=== PATIENT | female | born 1930 | race Caucasian/White ===

== ENCOUNTER → 2016-07-02 | Outpatient (CLI) | payer OTHER | LOC: MMPC 10:00 | PROVIDERS: ATTEND Podiatrist Foot & Ankle Surgery | DX: L60.3 Nail dystrophy (principal); M25.572 Pain in left ankle and joints of left foot | CPT/HCPCS: 11755; G0463 ==

== ENCOUNTER → 2016-07-08 | Outpatient (CLI) | payer OTHER ==
--- NOTE | 2016-07-09 08:38 | DI ---
History: Left foot trauma 4 view study. Prior examination: None. Findings: There is some degenerative changes surfaces at the first IP articulation with some small os teophytes. Phalanges are otherwise unremarkable. Minimal hallux valgus angulation. Mild degenerative changes of the midfoot. Hindfoot ossicles appear unremarkable. Impression: Minimal degenerative changes as mentioned above. No fracture observed
== END ==
LOC: RAD 17:37
PROVIDERS: ATTEND Physician Assistant
DX: M79.672 Pain in left foot (principal); M19.072 Primary osteoarthritis, left ankle and foot; W01.0XXA Fall on same level from slipping, tripping and stumbling without subsequent striking against object, initial encounter
CPT/HCPCS: 73630; 99212; G0463

== ENCOUNTER → 2016-07-31 | Outpatient (CLI) | payer OTHER | LOC: MMPC 10:00 | PROVIDERS: ATTEND Podiatrist Foot & Ankle Surgery | DX: M25.572 Pain in left ankle and joints of left foot (principal); L60.3 Nail dystrophy ==

== ENCOUNTER 2016-09-01 14:06 | Inpatient (IN) | payer OTHER ==
[2016-09-01] MEDS ORDERED: NORMAL SALINE 10 ML SYRINGE FLUSH IVP PRN (15:00)
[2016-09-01] MEDS ORDERED: ALBUTEROL SULFATE 8.5 GM HFA INHALER INH PRN (15:04)
--- NOTE | 2016-09-01 15:12 | PDOC ---
History and Physical - History of Present Illness Date and Time of Service: 09/01/2016 3:11 PM Chief Complaint: Unsteadiness, trouble finding words since last Thursday History of Present Illness: This is a 86 years old female with medical history significant for history of hypertension, hypothyroidism, hyperlipidemia and GERD who was referred to the hospital from Dr. Cai office as she's been having trouble finding words and unsteadiness that started last Thursday. The patient said that she was at the grocery line last Thursday and all of a sudden she didn't know what to do,had trouble paying for her groceries and then the credit collections clerk helped her with that but she was able to drive back home the whole thing lasted 5-10 minutes and then things improved. But she noticed after that that she is having trouble with walking with slight unsteadiness and difficulty in finding words. She doesn't think that there is weakness on one side more than the other, however Dr. Cai noticed some difference in the coordination of the left hand. She did say that she's noticed that her handwriting and she is right-handed is different since the episode. No change in her vision. In the clinic it was noted that her blood pressure was elevated and she was referred for admission. She denied chest pain, shortness of breath, and no palpitations. Past Medical History Medical History: 1. History of hypertension. 2. History of atrial fibrillation status post ablation 2008. 3. Hyperlipidemia. 4. Hypothyroidism. 5. GERD. 6. Asthma Surgical History: 1. Hysterectomy. 2. Cholecystectomy Family History: Reviewed an Not Pertinent Tobacco Use: Never Smoker Substance Use Type: None Alcohol Use: Rarely Medication / Allergies Home Medications: Home Medications Medication Instructions Recorded Confirmed Type Albuterol HFA Inhaler [Proair HFA 2 puff INH Q4H PRN #3 inhaler 03/22/14 Clinic Inhaler] Budesonide/Formoterol Fumarate 2 puff INH BID #1 inhaler 03/22/14 09/01/16 Clinic [SYMBICORT] Multivitamin [Daily Vitamin] 1 each PO DAILY tab 03/22/14 09/01/16 History Dexlansoprazole [Dexilant] 60 mg PO DAILY #90 cap 09/04/15 09/01/16 Clinic Losartan Potassium 1 tab PO DAILY #90 tab 09/04/15 09/01/16 Clinic Hydrochlorothiazide 0.5 tab PO DAILY #90 tab 12/26/15 09/01/16 Clinic Citalopram Hydrobromide 1 tab PO DAILY #90 tab 02/20/16 09/01/16 Clinic [Citalopram Hbr] Potassium Chloride [Klor-Con M20] 20 meq PO BID #60 tab 02/22/16 09/01/16 Clinic Ezetimibe [Zetia] 1 tab ORAL QD #90 tab 06/16/16 09/01/16 Clinic Levothyroxine Sodium [Synthroid] 1 tab ORAL QD #90 tab 06/16/16 09/01/16 Clinic Allergies/Adverse Reactions: Allergies Allergy/AdvReac Type Severity Reaction Status Date / Time aloe vera Allergy Mild RASH Unverified 07/08/16 17:25 atenolol AdvReac Intermediate NOT Unverified 07/08/16 17:25 APPLICABLE brimonidine tartrate AdvReac Intermediate DIZZINESS Unverified 07/08/16 17:25 [From Simbrinza] brinzolamide [From Simbrinza] AdvReac Intermediate DIZZINESS Unverified 17:25 codeine AdvReac Intermediate VOMITING Unverified 07/08/16 17:25 sotalol AdvReac Intermediate NOT Unverified 07/08/16 17:25 APPLICABLE Kbwhpyq-Fwl-Wzy Reductase AdvReac Intermediate NOT Unverified 07/08/16 17:25 Inhibitor APPLICABLE Review of Systems - Review of Systems All Systems: Reviewed & No Additional Complaints Except as Stated Exam - Vitals Vital Signs: Vital Signs Height 5 ft 4 in - General General Appearance: POSITIVE: No Acute Distress, Cooperative, Obese - Head Head Exam: POSITIVE: Normal Inspection, Atraumatic - Eye Eye Exam: POSITIVE: Normal Appearance - ENT ENT Exam: POSITIVE: Normal Exam - Neck Neck Exam: POSITIVE: Normal Inspection - Respiratory Respiratory Exam: POSITIVE: Clear to Auscultation - Bilaterally - Cardiovascular Cardiovascular Exam: POSITIVE: RRR - GI/Abdominal GI/Abdominal Exam: POSITIVE: Normal Bowel Sounds, Non Tender, Non Distended, Soft - Rectal Rectal Exam: POSITIVE: Deferred - External Exam: POSITIVE: Deferred - Extremities Extremities Exam: POSITIVE: Normal Inspection, Pedal Edema - Back Back Exam: POSITIVE: Normal Inspection - Neurological Neurological Exam: POSITIVE: Alert, Oriented x 3, CN II-XII Intact, No Facial Droop, Speech Intact / Clear, No Fasciculations Additional Neurological Exam Details: Strengths seem to be equal except there is some coordination problems noted on the left hand. The left hand seems to be more clumsy and there is past pointing. Her gait seemed to be hesitant and somewhat wide-based. - Psychiatric Psychiatric Exam: POSITIVE: Normal Affect - Integumentary Integumentary Exam: POSITIVE: Normal Color Results - Labs CBC and BMP: 09/01/16 15:26 Assessment and Plan - Patient Problems (1) Unsteadiness Current Visit: Yes Status: Acute Comment: There is some unsteadiness, and coordination problem on the left hand so we'll do a CT of the head to rule out a CVA if negative then we'll do an MRI. If it is positive then we'll do an ECHO and ultrasound of the neck. Because of her history of for previous A. fib will puts her on monitor. Once we have the CT will put her on aspirin and order PT and OT (2) Hypertension Current Visit: Yes Status: Acute Comment: Blood pressure is elevated we'll put her back on her usual medication. Watch her blood pressure. We'll see if she had a stroke or not, then we'll adjust the blood pressure medication depending on the findings and blood pressure numbers (3) Hypothyroidism Current Visit: Yes Status: Acute Comment: Same medications (4) Hypercholesterolemia Current Visit: Yes Status: Acute Comment: Same medications
[2016-09-01 15:29] LABS: BASOPHILS # (AUTO) 0.04 10*3/UL; BASOPHILS % (AUTO) 0.7 % (0-1); EOSINOPHILS # (AUTO) 0.21 10*3/UL; EOSINOPHILS % (AUTO) 3.5 % (0-8); HEMATOCRIT 42.7 % (37.0-47.0); HEMOGLOBIN 13.8 g/dL (12.0-16.0); MEAN CORPUSCULAR HEMOGLOBIN 29.7 PG (27-31); MEAN CORPUSCULAR HGB CONC 32.3 g/dL (33-37); MEAN PLATELET VOLUME 9.9 FL (7.4-12.2); MONOCYTES # (AUTO) 0.63 10*3/UL (0.3-0.8); MONOCYTES % (AUTO) 10.4 % (5-15); NEUTROPHILS # (AUTO) 3.37 10*3/UL; NEUTROPHILS % (AUTO) 55.5 % (50-80); RED BLOOD COUNT 4.64 10^6/uL (4.20-5.40)
[2016-09-01 15:32] LABS: PLATELET MORPHOLOGY COMMENT NORMAL MORPHOLOGY (NORM); RBC MORPHOLOGY COMMENT NORMAL MORPHOLOGY (NORM); WBC MORPHOLOGY COMMENT NORMAL MORPHOLOGY (NORM)
[2016-09-01 15:51] LABS: BUN/CREATININE RATIO 38.33 (6-20); CALCIUM 10.4 mg/dL (8.7-10.7)
--- NOTE | 2016-09-01 16:08 | EKG ---
[address] [address] Measurements Intervals [place] Rate: 66 P: 69 TX: 176 QRS: 56 QRSD: 105 T: 53 QT: 422 QTc: 436 Interpretive Statements SINUS RHYTHM WITH OCCASIONAL SUPRAVENTRICULAR PREMATURE COMPLEXES Compared to ECG 12/21/2015 14:25:15 ST (T wave) deviation no longer present Electronically Signed On 09-02-16 17:16:17 MST by Naga Townsend [email or web address]
[2016-09-01] MEDS: PANTOPRAZOLE 40 MG TABLET PO SCH (16:19)
--- NOTE | 2016-09-01 18:14 | DI ---
CT HEAD SCAN WITHOUT IV CONTRAST, 09/01/2016 3:03 PM : Clinical History: Difficulty in finding words. Unsteadiness. Previous Exam: None at this facility. Scans are obtained from the foramen magnum to the vertex without IV contrast. The 4th, 3rd, and lateral ventricles are of normal size, shape, position, and contour for the patient 's age. Immediately anterior to the left posterior limb of the internal capsule near the genu in the globus pallidus is a focus of increased density that is in the range of blood density, but this only measures at most 4 mm in diameter. An MRI brain scan is recommended to differentiate between a hemorr hagic focus versus unilateral calcification in the basal ganglia. There is no evidence of an acute bl and infarct. No abnormality is visible in the location of Broca's speech center on either side. There are multiple punctate periventricular white matter lucencies bilaterally that extend into the pacheco hed territory, consistent with small vessel ischemic disease. This amount of ischemic disease is appr opriate for the patient's age. There is moderate cerebellar and cerebral atrophy. There are are no ex tracerebral mantles or shift of the midline structures. Bone window evaluation is normal. The paranas al sinuses are normal. READIN. There is a roughly 4 mm focus of increased density in the left basal ganglia in the globus pallid us just anterior to the posterior limb of the internal capsule in proximity to the genu. This can eit her represent a focus of calcification in the basal ganglia or this may represent a very small focus of hemorrhagic infarct. Typically, acute hemorrhagic infarcts in this location are secondary to hyper tension and are also larger in size. An MRI scan is recommended for further evaluation. 2. Small vessel ischemic disease. 3. Moderate cerebellar and cerebral atrophy.
[2016-09-01] MEDS: POTASSIUM CHLORIDE 20 MEQ TAB PO SCH (20:59)
[2016-09-01] MEDS: LOSARTAN 50 MG TABLET PO SCH (20:59)
[2016-09-01] MEDS ORDERED: Non-Formulary Drug (Budesonide/Formoterol Fumarate [Symbicort] 2 PUFF) INH SCH (21:00)
[2016-09-01] MEDS: ACETAMINOPHEN 325 MG TABLET PO PRN (23:30)
[2016-09-02] MEDS: LEVOTHYROXINE 50 MCG TABLET PO SCH (05:41)
[2016-09-02] MEDS: HYDROCHLOROTHIAZIDE 25 MG TABLET PO SCH (07:09)
[2016-09-02] MEDS: PANTOPRAZOLE 40 MG TABLET PO SCH ×2 (07:09→17:24)
--- NOTE | 2016-09-02 07:31 | PDOC(PROG) ---
Date and Time of Service: 09/02/2016 7:29 AM Interval History: Subjective Patient feels better, denying symptoms. She thinks her gait may be a little bit better today than yesterday. Still have problem finding words according to her. Objective : Data - Labs CBC and BMP: 09/01/16 15:26 09/01/16 15:26 Labs - Last 24 Hours: Laboratory Results 09/01/16 Range/Units 15:26 WBC 6.06 (4.8-10.8) 10^3/uL RBC 4.64 (4.20-5.40) 10^6/uL Hgb 13.8 (12.0-16.0) g/dL Hct 42.7 (37.0-47.0) % MCV 92.0 (81-99) FL MCH 29.7 (27-31) PG MCHC 32.3 L (33-37) g/dL RDW Std Deviation 46.0 (39-50) fL RDW Coeff of Olimpia 14.0 (11.5-14.5) % Plt Count 179 (140-350) 10*3/uL MPV 9.9 (7.4-12.2) FL Immature Gran % (Auto) 0.2 (0-5) % Neut % (Auto) 55.5 (50-80) % Lymph % (Auto) 29.7 (10-50) % [place] % (Auto) 10.4 (5-15) % Eos % (Auto) 3.5 (0-8) % Baso % (Auto) 0.7 (0-1) % Immature Gran # (Auto) 0.01 10*3/UL Neut # (Auto) 3.37 10*3/UL Lymph # (Auto) 1.80 10*3/uL [place] # (Auto) 0.63 (0.3-0.8) 10*3/UL Eos # (Auto) 0.21 10*3/UL Baso # (Auto) 0.04 10*3/UL WBC Morphology Comment Normal morphology (NORM) Plt Morphology Comment Normal morphology (NORM) RBC Morph Comment Normal morphology (NORM) Sodium 141 (135-145) meq/L Potassium 4.1 (3.8-5.2) meq/L Chloride 105 (98-112) meq/L Carbon Dioxide 25 (23-33) meq/L Anion Gap 11 (5-20) BUN 23 H (7-22) mg/dL Creatinine 0.6 (0.50-1.20) mg/dL Estimated GFR (>60 ml/min/1.73m(2)) BUN/Creatinine Ratio 38.33 H (6-20) Glucose 79 (78-110) mg/dL Calculated Osmolality 294.0 H (267-292) mOsm/kg Calcium 10.4 (8.7-10.7) mg/dL Total Bilirubin 0.6 (0.3-1.2) mg/dL AST 27 (8-39) IU/L ALT 33 (9-52) IU/L Alkaline Phosphatase 74 (38-126) IU/L Troponin I < 0.012 (< 0.040) ng/mL Total Protein 6.6 (6.1-8.0) g/dL Albumin 4.0 (3.5-4.8) g/dL Globulin 2.6 (2.50-4.10) g/dL Albumin/Globulin Ratio 1.50 (1.3-2.0) mg/g Objective : Exam - General General Appearance: No Acute Distress, Cooperative - Head Head Exam: Normal Inspection - Eye Eye Exam: Normal Appearance - ENT ENT Exam: Normal Exam - Neck Neck Exam: Normal Inspection - Respiratory Respiratory Exam: Clear to Auscultation - Bilaterally - Cardiovascular Cardiovascular Exam: RRR - GI/Abdominal GI/Abdominal Exam: Normal Bowel Sounds, Non Tender, Non Distended, Soft - Rectal Rectal Exam: Deferred - External Exam: Deferred - Extremities Extremities Exam: Normal Inspection - Back Back Exam: Normal Inspection - Neurological Neurological Exam: Alert, Oriented x 3, CN II-XII Intact, Moves All Extremities Equally Additional Neurological Exam Details: Coordination in the left hand seems to be better than yesterday. - Psychiatric Psychiatric Exam: Normal Affect - Integumentary Integumentary Exam: Normal Color Assessment and Plan - Patient Problems (1) Unsteadiness Current Visit: Yes Status: Acute Comment: CT that she had yesterday was not clear-cut for stroke another possibility was a calcification she'll have an MRI today. (2) Hypertension Current Visit: Yes Status: Acute Comment: Continue previous medications, if no stroke on blood pressure remains high will start her on Norvasc and probably watch him another day. We'll ask PT to do a Mini-Mental tomorrow (3) Hypothyroidism Current Visit: Yes Status: Acute Comment: Same med (4) Hypercholesterolemia Current Visit: Yes Status: Acute Comment: Same medications
[2016-09-02] MEDS: CITALOPRAM 20 MG TABLET PO SCH (08:43)
[2016-09-02] MEDS: Multivitamin Tab 1 TAB PO SCH (08:43)
[2016-09-02] MEDS: POTASSIUM CHLORIDE 20 MEQ TAB PO SCH ×2 (08:43→20:43)
--- NOTE | 2016-09-02 09:41 | DI ---
MRI BRAIN SCAN WITHOUT CONTRAST, 09/02/2016 7:00 AM: Clinical History: Unsteadiness. Abnormal CT head scan performed on 09/01/2016, revealed a focus of high density near the genu of the left internal capsule in the globus pallidus. Previous Exam: None at this facility. Sequences: Sagittal T1; Axial SEDRICK T2 and FLAIR. Axial diffusion weighted images with ADC mapping were also performed. The 4th, 3rd, and lateral ventricles are of normal size, shape, position, and contour for this patien t's age. There are multiple punctate periventricular white matter hyperintensities bilaterally that e xtend into the watershed territory, consistent with small vessel ischemic disease. This amount of isc hemic disease is appropriate for the patient's age. There is no lesion seen in the basal ganglia on e ither side. The high density area seen on the CT scan most likely represents benign calcifications. D iffusion weighted imaging with ADC mapping is normal. There is moderate cerebellar and cerebral atrop hy. There are no extracerebral mantels or shift of the midline structures. The paranasal sinuses are normal. Readin. Small vessel ischemic disease. 2. No abnormality is seen in either basal ganglia. The findings on the CT scan involving the left gl obus pallidus are consistent with calcifications in the basal ganglia and not an acute hemorrhage. 3. Diffusion weighted imaging with ADC mapping is normal. 4. Moderate cerebellar and cerebral atrophy.
--- NOTE | 2016-09-02 09:58 | DI ---
MR ANGIOGRAPHY OF THE [place], 09/02/2016 7:00 AM: Clinical History: Unsteadiness. Abnormal CT head scan performed on 09/01/2016, revealed a focus of hype rintensity in the genu of the left internal capsule in the globus pallidus. Previous Exam: None at this facility. High resolution axial 3D thin slice time of flight scans are performed for the arterial phase. 3D MIP S reconstructions are obtained. The left vertebral artery is dominant. There is no basilar tip aneurysm or aneurysm arising from the vertebral-basilar branches. There is no right posterior communicating artery. The left posterior comm unicating artery is normal. There is no true anterior communicating artery. Instead, there is a small left A1 segment that directly joins the larger right A1 segment and forms a large anterior single an terior cerebral artery. This is a normal variant. More distally, branches arise the correspond to the pericallosal and callosomarginal branches of the anterior cerebral artery. The M1 through M3 branche s bilaterally are normal. Reading: Normal MR angiogram scan of the [place] [facility] [place].
[2016-09-02] MEDS: AmLODIPine Tab 5 MG TABLET PO SCH (13:03)
[2016-09-02] MEDS: ACETAMINOPHEN 325 MG TABLET PO PRN (16:59)
--- NOTE | 2016-09-02 20:35 | DI ---
DUPLEX COLOR DOPPLER CAROTID ULTRASOUND, 09/02/2016 7:31 AM: Clinical History: Unsteadiness. Previous Exam: None at this facility. Technique: 2D real time imaging is supplemented with duplex color doppler ultrasound imaging. RIGHT CAROTID ARTERY: 2D real time imaging of the right carotid system shows minimal intimal thickening in the common carot id artery with calcified plaques in the carotid bulb and the origins of the internal and external car otid arteries. Peak systolic velocities through the right common carotid, the external carotid, and t he internal carotid are 82 cm/s, 57 cm/s, and 78 cm/s, respectively. All values correspond to diamete r stenoses of 0-49%. LEFT CAROTID ARTERY: 2D real time imaging of the left carotid system shows minimal intimal thickening in the left common c arotid artery with calcified plaques in the carotid bulb and in the origins of the internal and exter nal carotid arteries. Peak systolic velocities through the left common carotid, the external carotid, and the internal carotid are 70 cm/s, 64 cm/s, and 79 cm/s, respectively. All values correspond to d iameter stenoses of 0-49%. VERTEBRAL ARTERIES: There is antegrade flow through both vertebral arteries Cardiac rhythm is regular. Peak systolic [place] through the visualized portions of the right and left vertebral arteries are 38 cm/s and 26 cm /s, respectively. Readin. There is no hemodynamically significant stenosis in either carotid system. 2. There is antegrade flow through both vertebral arteries. Cardiac rhythm is regular.
[2016-09-02] MEDS: EZETIMIBE 10 MG TABLET PO SCH (20:43)
[2016-09-02] MEDS: LOSARTAN 50 MG TABLET PO SCH (20:43)
[2016-09-02] MEDS ORDERED: AmLODIPine Tab 2.5 MG TABLET PO ONE (23:34)
[2016-09-03] MEDS: LEVOTHYROXINE 50 MCG TABLET PO SCH (06:03)
[2016-09-03] MEDS: HYDROCHLOROTHIAZIDE 25 MG TABLET PO SCH (07:31)
[2016-09-03] MEDS: PANTOPRAZOLE 40 MG TABLET PO SCH ×2 (07:57→17:53)
[2016-09-03] MEDS: POTASSIUM CHLORIDE 20 MEQ TAB PO SCH ×2 (08:46→20:16)
[2016-09-03] MEDS: CITALOPRAM 20 MG TABLET PO SCH (08:46)
[2016-09-03] MEDS: Multivitamin Tab 1 TAB PO SCH (08:46)
[2016-09-03] MEDS: AmLODIPine Tab 5 MG TABLET PO SCH (08:46)
--- NOTE | 2016-09-03 13:01 | PTI REPORT ---
Thank you for the referral of Carina ParedesJoby Wootene. She was seen on 09/02/16 for an inpatient evaluation secondary to unsteadiness and weakness. SUBJECTIVE: The patient is an 86-year-old female who stated that approximately a week ago she began having symptoms when she was in the grocery store; she was having difficulty coming up with words and kind of had forgotten where she was at. She states that the patient access had to help her pay for her groceries. She says she was able to drive back home, but once she got home she felt like she was going to fall as she was very unsteady. She states that her symptoms have improved but she continues to have difficulty finding words. The patient was at her doctor appointment yesterday when she was sent over to the hospital. The patient states that she possibly had a TIA. The patient states that she works at [employer]. She states she did have two falls in June; one she states she slipped and fell on a cucumber at work and landed on her knees. The second one, she states she tripped over the dog bed at her home. The patient denies any injury from the falls except for a little pain in her left ankle. The patient reports that she uses no assistive device to get around and she does live in a mobile home that has stairs into the house and she has a roommate. The patient states that she is independent with all ADLs. The patient states that she feels a little weaker on her left vs. her right side. The patient states that she does have past medical history of hypertension. The patient has been seen before by outpatient physical therapy for bilateral knee and back pain. PAST MEDICAL HISTORY: Past medical history can be found in the patient's medical record. OBJECTIVE FINDINGS: General observations: The patient is alert and oriented to setting upon PT arrival. The patient was sitting up in her chair finishing her breakfast. The patient did have a difficult time with word recall during parts of our evaluation, but otherwise provided a good history. Balance: The patient demonstrated good seated balance. The patient demonstrated good standing balance in a Romberg stance. The patient had more difficulties with balance in tandem standing and also attempting single leg standing as she was unsteady more on the left vs. the right. The patient was also more unsteady with Romberg eyes closed testing. The patient was able to reach down and pickle sorter an object from the floor without any assistance or safety concerns. The patient was also able to perform a functional reach to 5" without loss of balance. Transfers: The patient was able to independently move from a seated to standing position. ASSESSMENT: The patient has good rehab potential. Problem List: Difficulties with balance Generalized lower extremity weakness Short-Term Goals: To be met by discharge from inpatient: Patient will be able to participate in 45 minutes of physical therapy activity for balance and general strengthening without any difficulties. Patient will be able to ascend and descend up and down stairs and at least 200 feet on a level surface independently and safely in order to return home. Long-Term Goals: To be met following discharge from inpatient: If patient continues to have difficulty with unsteadiness or any new falls, we will seek outpatient physical therapy orders. TREATMENT PLAN: Patient will be seen B.I.D during the week and one time per day over the weekend as an inpatient to address the above goals and objectives. INITIAL TREATMENT: Treatment today consisted of the initial evaluation only. EDITH
--- NOTE | 2016-09-03 14:10 | PT PM DAY ---
Diagnosis : Unsteadiness/Weakness PM - Physical Therapy S: The patient states she is doing well this afternoon. O: The patient did participate in a shower with OT prior to coming down to therapy to participate in PT. The patient performed 15 minutes on the NuStep machine for general cardiovascular and endurance activity. The patient was then instructed in neuromuscular reeducation for balance activities with assist x1. Balance activities consisted of hurdles with airex pads for uneven surface walking, balance grid, tandem walking. The patient also participated in therapeutic exercises for general strengthening of the bilateral lower extremities with two pound weights including alternating marching, alternating long arc quads, bilateral straight leg raises, short arc quads, hip abduction/ adduction, and sit to stands. A: The patient did very well with the exercises. She is very motivated to improve so that she can be discharged from the hospital. The patient had no loss of balance with the balance activities but did require hand hold assist at tis with more challenging foam surfaces. P: Continue seeing patient BID during the week and one time per day over the weekend for transfers, ambulation, and range of motion/strengthening exercises. EDITH
--- NOTE | 2016-09-03 14:37 | OTI REPORT ---
Thank you for the referral of Carina Tom. She was seen on 09/02/16 for an occupational therapy inpatient evaluation secondary to unsteadiness and weakness. SUBJECTIVE: The patient is an 86-year-old female who lives in her own home with a roommate. Prior to admission the patient was independent with all ADLs and iADLs. The patient works at [employer] which she says she does enjoy. The patient reports that a week ago she was at the grocery store when all the sudden she did not know where she was. She did not know how to use her credit card and was very confused. The patient did drive herself home where she laid down and took a little nap. The patient woke up and said that her left side felt a little bit funny and just not as strong, but nothing too noticeable. The patient ended up being admitted after she went to her doctor and explained all of her symptoms and he was worried that maybe she had a mini stroke. The patient was admitted on observation. PAST MEDICAL HISTORY: Past medical history can be found in the patient's medical record. OBJECTIVE FINDINGS: General observations: The patient was up in her chair eating breakfast upon the therapist's arrival. The patient reports no issues with swallowing but does report that she is having a hard time recalling words in speech compared to normal. Strength: At this time the patient does not have any noticeable weakness on the left side. Upper extremity strength throughout is 4/5. Coordination: Coordination does seem to be just a hair decreased; although it is still within normal ranges. Proprioception: Proprioception was off by approximately 1/2 an inch compared to the right. The patient is right handed and she was very excited that she was able to sign her name and have it be legible compared to some of her signatures in the last week. Transfers: The patient was able to transfer from sit to stand independently. Balance: The patient demonstrates good balance. Range of motion: The patient demonstrates good shoulder range of motion. ASSESSMENT: The therapist would like to do an aphasia screening on the next visit with the patient. It does seem the patient has probably had a mini stroke; she did have testing to confirm this but has not had a report from the tests yet. The patient does seem to be recovering very well from the mini stroke. Occupational Therapy Goals: To be met by discharge from inpatient: Patient will be able to complete all ADLs and showering tasks independently. Patient will be able to complete 20-30 minutes of activity at a time with one rest break to demonstrate she is able to go back to work. Patient will increase upper extremity strength to 5/5. TREATMENT PLAN: Patient will be seen B.I.D during the week and one time per day over the weekend as an inpatient to address the above goals and objectives. INITIAL TREATMENT: Treatment today consisted of the initial evaluation activities only. EDITH
--- NOTE | 2016-09-03 14:43 | OT PM DAY ---
Diagnosis : Unsteadiness/Weakness PM - Occupational Therapy S: The patient was in her room upon the therapist's arrival. She states she is willing to take a shower. O: The patient was able to complete all functional transfers, donning and doffing of clothes, and all showering tasks including hygiene and toweling off with mod independence. Her safety was good and other than set up of the shower which she was unfamiliar with, she did very well. The patient did take increased time due to enjoying her shower, but otherwise did very well. Nursing did notify us that they put the patient on a new blood pressure medication and that she was negative for a TIA and to watch to make sure she did not get busy. During our showering session she did do well. The patient did ambulate down to therapy. She did have fair balance. She did seem to weave a little bit while she was walking, but otherwise did fairly well. A: The patient did well today and demonstrated good safety. P: Continue seeing patient BID during the week and one time per day over the weekend for upper extremity strengthening, ADLs, and overall functional mobility. DEBBIED
--- NOTE | 2016-09-03 15:32 | PDOC(PROG) ---
Interval History: Patient is feeling much better still has some difficulty word finding but the her strength is good still a little imbalance patient not ready to be discharged home does not feel safe because of the imbalance will continue PT OT Objective : Data - Labs CBC and BMP: 09/01/16 15:26 09/01/16 15:26 Objective : Exam - General General Appearance: Cooperative - Eye Eye Exam: Normal Appearance, PERRL, EOMI - Respiratory Respiratory Exam: Clear to Auscultation - Bilaterally, Breathing Non Labored, Normal To Percussion - Cardiovascular Cardiovascular Exam: RRR, No Murmur, No Clicks - GI/Abdominal GI/Abdominal Exam: Non Tender, Non Distended, Soft - Extremities Extremities Exam: No Clubbing Present, No Edema Present, No Cyanosis Present Assessment and Plan - Patient Problems (1) Hypertension Current Visit: Yes Status: Acute Comment: Stop valsartan start fosinopril 40 increased dose of Norvasc to 10 mg. Hydrochlorothiazide (2) Hypercholesterolemia Current Visit: Yes Status: Acute Comment: Continue current meds (3) Hypothyroidism Current Visit: Yes Status: Acute Comment: Continue replacement (4) TIA (transient ischemic attack) Current Visit: Yes Status: Acute Comment: Resolving I suggested patient be on aspirin and to think about anticoagulation even though I do not see any evidence of A. fib at present time on telemetry she might want to visit with her lye bath operator for possible Holter (5) History of atrial fibrillation Current Visit: Yes Status: Acute
--- NOTE | 2016-09-03 16:42 | PT.PROG ---
Progress Note Progress Note: S. Patient agreed to go to therapy this afternoon. O. Patient ambulated 175 feet to the therapy gym where she used the bike x 10 minutes and the nu-step x10 minutes then performed seated exercises in the form of; long arc quads, heel toe raises, marches, ball squeezes, clamshells, sit to stands, all x 10 bilaterally. Patient ambulated 175 feet back to her room where she was left in her chair with alarm and call light. A. Patient tolerated activity very well, she struggles with her balance due to Left ankle injury however is able to recover with CGA. Patient would continue to benefit from skilled therapy to gain strength, balance and endurance. P. continue POC.
--- NOTE | 2016-09-03 16:55 | PT.PROG ---
Progress Note Progress Note: S. Patient stated that she is feeling good this morning, she stated that "she is concerned about her mind more than anything." O. Patient ambulated 175 feet to the therapy gym where she used the nu-step x 10 minutes then performed obstacle course with small hurdles, and balance pad to x 3, balance grid x 3, sit to stands x 10, seated exercises in the form of; long arc quads, heel toe raises, marches, ball squeezes, clamshells, sit to stands, all x 10 bilaterally. Patient ambulated 175 feet back to her room where she was left in her chair with alarm and call light. A. Patient tolerated exercises well this morning, she struggles with her balance on her Left leg due to injury to her ankle. Patient would continue to benefit from skilled therapy to increase strength, balance and endurance. P. Continue POC.
[2016-09-03] MEDS: EZETIMIBE 10 MG TABLET PO SCH (20:16)
[2016-09-04] MEDS: LEVOTHYROXINE 50 MCG TABLET PO SCH (06:02)
[2016-09-04 06:18] LABS: BASOPHILS # (AUTO) 0.03 10*3/UL; BASOPHILS % (AUTO) 0.5 % (0-1); EOSINOPHILS # (AUTO) 0.32 10*3/UL; EOSINOPHILS % (AUTO) 4.9 % (0-8); HEMATOCRIT 43.8 % (37.0-47.0); HEMOGLOBIN 13.6 g/dL (12.0-16.0); LYMPHOCYTES # (AUTO) 1.89 10*3/uL; MEAN CORPUSCULAR HGB CONC 31.1 g/dL (33-37); MEAN CORPUSCULAR VOLUME 93.4 FL (81-99); MEAN PLATELET VOLUME 10.1 FL (7.4-12.2); MONOCYTES % (AUTO) 10.8 % (5-15); NEUTROPHILS # (AUTO) 3.54 10*3/UL; NEUTROPHILS % (AUTO) 54.4 % (50-80); RED BLOOD COUNT 4.69 10^6/uL (4.20-5.40)
[2016-09-04 06:20] LABS: PLATELET MORPHOLOGY COMMENT NORMAL MORPHOLOGY (NORM); RBC MORPHOLOGY COMMENT NORMAL MORPHOLOGY (NORM); WBC MORPHOLOGY COMMENT NORMAL MORPHOLOGY (NORM)
[2016-09-04 06:28] LABS: BUN/CREATININE RATIO 44.28 (6-20); CALCIUM 9.8 mg/dL (8.7-10.7); MAGNESIUM 1.7 mg/dL (1.6-2.4); SERUM ALBUMIN 3.8 g/dL (3.5-4.8)
[2016-09-04] MEDS: PANTOPRAZOLE 40 MG TABLET PO SCH ×2 (07:19→17:06)
[2016-09-04] MEDS ORDERED: Magnesium Sulfate 2gm (Premix) 2 GM in Premix 1 BAG IV ONE (07:24)
[2016-09-04] MEDS ORDERED: ASPIRIN 325 MG TABLET PO SCH (09:00)
[2016-09-04] MEDS: LISINOPRIL 20 MG TABLET PO SCH (09:04)
[2016-09-04] MEDS: POTASSIUM CHLORIDE 20 MEQ TAB PO SCH ×2 (09:05→21:29)
[2016-09-04] MEDS ORDERED: ASPIRIN EC 81 MG TABLET PO ONE (09:10)
[2016-09-04] MEDS: Multivitamin Tab 1 TAB PO SCH (09:10)
[2016-09-04] MEDS: CITALOPRAM 20 MG TABLET PO SCH (09:10)
--- NOTE | 2016-09-04 10:43 | PDOC(PROG) ---
Interval History: No complaints continues to improve with physical therapy we had to make her inpatient because of her blood pressure needed to be better controlled I changed her medications yesterday we have obtained some improvement but I will add 1 more so she will be spending the another night or 2 in the hospital Objective : Data - Labs CBC and BMP: 09/04/16 05:38 09/04/16 05:38 Labs - Last 24 Hours: Laboratory Results 09/04/16 Range/Units 05:38 WBC 6.50 (4.8-10.8) 10^3/uL RBC 4.69 (4.20-5.40) 10^6/uL Hgb 13.6 (12.0-16.0) g/dL Hct 43.8 (37.0-47.0) % MCV 93.4 (81-99) FL MCH 29.0 (27-31) PG MCHC 31.1 L (33-37) g/dL RDW Std Deviation 47.2 (39-50) fL RDW Coeff of Olimpia 14.2 (11.5-14.5) % Plt Count 200 (140-350) 10*3/uL MPV 10.1 (7.4-12.2) FL Immature Gran % (Auto) 0.3 (0-5) % Neut % (Auto) 54.4 (50-80) % Lymph % (Auto) 29.1 (10-50) % [place] % (Auto) 10.8 (5-15) % Eos % (Auto) 4.9 (0-8) % Baso % (Auto) 0.5 (0-1) % Immature Gran # (Auto) 0.02 10*3/UL Neut # (Auto) 3.54 10*3/UL Lymph # (Auto) 1.89 10*3/uL [place] # (Auto) 0.70 (0.3-0.8) 10*3/UL Eos # (Auto) 0.32 10*3/UL Baso # (Auto) 0.03 10*3/UL WBC Morphology Comment Normal morphology (NORM) Plt Morphology Comment Normal morphology (NORM) RBC Morph Comment Normal morphology (NORM) Sodium 139 (135-145) meq/L Potassium 4.4 (3.8-5.2) meq/L Chloride 104 (98-112) meq/L Carbon Dioxide 26 (23-33) meq/L Anion Gap 9 (5-20) BUN 31 H (7-22) mg/dL Creatinine 0.7 (0.50-1.20) mg/dL Estimated GFR (>60 ml/min/1.73m(2)) BUN/Creatinine Ratio 44.28 H (6-20) Glucose 115 H (78-110) mg/dL Calculated Osmolality 295.0 H (267-292) mOsm/kg Calcium 9.8 (8.7-10.7) mg/dL Magnesium 1.7 (1.6-2.4) mg/dL Total Bilirubin 0.4 (0.3-1.2) mg/dL AST 20 (8-39) IU/L ALT 32 (9-52) IU/L Alkaline Phosphatase 69 (38-126) IU/L Total Protein 6.4 (6.1-8.0) g/dL Albumin 3.8 (3.5-4.8) g/dL Globulin 2.6 (2.50-4.10) g/dL Albumin/Globulin Ratio 1.40 (1.3-2.0) mg/g TSH 2.85 (0.2700-4.2000) uIU/mL Objective : Exam - Head Head Exam: Normal Inspection - Respiratory Respiratory Exam: Clear to Auscultation - Bilaterally, Breathing Non Labored, Normal To Percussion - Cardiovascular Cardiovascular Exam: RRR, No Murmur, No Clicks - GI/Abdominal GI/Abdominal Exam: Normal Bowel Sounds, Non Tender, Soft - Extremities Extremities Exam: No Clubbing Present, No Edema Present, No Cyanosis Present Assessment and Plan - Patient Problems (1) Hypertension Current Visit: Yes Status: Acute Comment: I changed her medications to Norvasc 10 mg and lisinopril 40 I will had a hydrochlorothiazide 25 (2) Hypercholesterolemia Current Visit: Yes Status: Acute Comment: Patient is on Zetia (3) Hypothyroidism Current Visit: Yes Status: Acute Comment: Continue replacement (4) TIA (transient ischemic attack) Current Visit: Yes Status: Acute Comment: Workup has been negative thus far I've instructed her to visit with her pickling operator she did have an ablation for A. fib repair I do not see any evidence of A. fib with aspirin at present time (5) History of atrial fibrillation Current Visit: Yes Status: Acute Comment: See above
[2016-09-04] MEDS: HYDROCHLOROTHIAZIDE 25 MG TABLET PO SCH (12:34)
[2016-09-04] MEDS: Sodium Chloride 0.9% 1,000 ML IV SCH (12:34)
[2016-09-04] MEDS: ACETAMINOPHEN 325 MG TABLET PO PRN (14:43)
--- NOTE | 2016-09-04 17:28 | PT.PROG ---
Progress Note Progress Note: S. Patient stated that she is feeling good this morning. O. Patient ambulated 175 feet to the therapy gym where she performed cardio exercises in the form of; arm bike, bicycle, and nu-step all x 10 minutes. Patient worked with OT then ambulated 175 feet back to her room where she was left in chair with alarm and call light. A. Patient tolerated cardio exercises well this morning, She continues to struggle with balance. Patient would continue to benefit from skilled therapy to increase strength and mobility. P. Continue POC.
--- NOTE | 2016-09-04 17:53 | PT.PROG ---
Progress Note Progress Note: S. Patient stated that she is feeling a little off this afternoon, however she would go to therapy this afternoon. O. Patient ambulated 175 feet to the therapy gym where she used the nu-step and the bicycle both x 10 minutes. patient then performed balance exercises in the form of; balance grid x 5, sit to stands x 10, and standing balance x 3 minutes. Patient was left with OT for further therapy. A. Patient tolerated therapy fair this afternoon, Patient struggles with balance and weakness on her left side due to ankle injury. Patient would continue to benefit from skilled therapy at this time. P. Continue POC. Plan to perform stair trainin 3/10 AM
[2016-09-04] MEDS: EZETIMIBE 10 MG TABLET PO SCH (21:29)
[2016-09-05] MEDS: Sodium Chloride 0.9% 1,000 ML IV SCH ×3 (03:34→20:00)
[2016-09-05] MEDS: LEVOTHYROXINE 50 MCG TABLET PO SCH (05:32)
[2016-09-05] MEDS: HYDROCHLOROTHIAZIDE 25 MG TABLET PO SCH (06:53)
[2016-09-05] MEDS: ACETAMINOPHEN 325 MG TABLET PO PRN (06:53)
[2016-09-05] MEDS: PANTOPRAZOLE 40 MG TABLET PO SCH ×2 (06:53→16:38)
[2016-09-05] MEDS: Multivitamin Tab 1 TAB PO SCH (09:19)
[2016-09-05] MEDS: CITALOPRAM 20 MG TABLET PO SCH (09:19)
[2016-09-05] MEDS: POTASSIUM CHLORIDE 20 MEQ TAB PO SCH ×2 (09:20→20:28)
[2016-09-05] MEDS: ASPIRIN EC 81 MG TABLET PO SCH (09:20)
[2016-09-05] MEDS: LISINOPRIL 20 MG TABLET PO SCH (09:20)
--- NOTE | 2016-09-05 11:05 | PDOC(PROG) ---
Interval History: Patient is doing much better continuing to do physical therapy she has hard to control blood pressure she is already on lisinopril Norvasc and the hydrochlorothiazide I will add hydralazine probably will need to spend another day here Objective : Data - Labs CBC and BMP: 09/04/16 05:38 09/04/16 05:38 Objective : Exam - General General Appearance: Cooperative - Respiratory Respiratory Exam: Clear to Auscultation - Bilaterally, Breathing Non Labored, Normal To Percussion - Cardiovascular Cardiovascular Exam: RRR, No Murmur, No Clicks, No Gallops - GI/Abdominal GI/Abdominal Exam: Soft - Extremities Extremities Exam: No Clubbing Present, No Edema Present, No Cyanosis Present Assessment and Plan - Patient Problems (1) Hypertension Current Visit: Yes Status: Acute Comment: Still high will add hydralazine to her regimen 10 mg by mouth 3 times a day she is already on the semipro 40 and Norvasc 10 and hydrochlorothiazide 25 she is allergic to beta blockers. (2) Hypercholesterolemia Current Visit: Yes Status: Acute Comment: Continues usual meds (3) Hypothyroidism Current Visit: Yes Status: Acute Comment: Continue replacement (4) TIA (transient ischemic attack) Current Visit: Yes Status: Acute Comment: Resolved continue aspirin (5) History of atrial fibrillation Current Visit: Yes Status: Acute Comment: Patient had an ablation and has been sinus rhythm the whole time in the hospital on telemetry
--- NOTE | 2016-09-05 11:51 | OT AM DAY ---
Diagnosis : Weakness AM - Occupational Therapy S: The patient states she is having a hard time recalling words when she is thinking of words to say. She states she used to have a very good vocabulary but since her stroke she has been struggling a little bit. O: The patient was brought down to the therapy gym by PT. OT worked with the patient on completing words and writing down two words with the same or similar meaning. The patient completed 24 words with two words for each word with similar meanings. The patient also completed vocabulary words by herself that had the same meaning. The patient also came up with a strategy to help her recall words. The patient then returned to her room with stand by assist for safety. The patient wanted to use the restroom upon returning to her room; nursing was notified. A: The patient would continue to benefit from therapy to work on aphasia. The patient transfers well. P: Continue seeing patient BID during the week and one time per day over the weekend until discharge. EDITH
--- NOTE | 2016-09-05 12:20 | PT.PROG ---
Progress Note Progress Note: S. Patient agreed to go to therapy this morning. she stated that she is feeling good today. O. Patient ambulated 175 feet to the therapy gym where she used the nu-step x 15 minutes then performed standing balance exercises in the form of; tandem stance 2x30 seconds, balance grid x 3, Box step ups with #3 box x15 bilaterally. Patient ambulated 175 feet back to her room where she was left in chair with alarm and call light. A. Patient tolerated activities well this morning, she was able to tolerate simulated stair training well this morning, will attempt stairs this afternoon. Patient was unable to perform stair training due to IV. P. continue POC.
--- NOTE | 2016-09-05 12:31 | OT.PROG ---
Progress Note Progress Note: S- Patient stated that she wanted to wait until tomorrow to go home secondary to her roommate not being home today. She stated she wanted to get ready by curling her hair and putting makeup on before leaving the room for therapy and talking to the doctor. Patient stated that she felt good today and she feels like she is improving. O- Patient tolerated 10 min of standing to complete basic grooming tasks to include over the head reaching. Patient sat to don pants and and completed by sit to stand she required SBA to complete safely but was steady when standing. OT returned pt to room approx 150ft. A- Patient requires SBA for safety when sitting to standing secondary to minimal decreased balance and SBA when completing counter top grooming tasks. P- Continue per plan of care until discharge.
--- NOTE | 2016-09-05 12:44 | OT AM DAY ---
Diagnosis : Weakness AM - Occupational Therapy S: The patient was in her room upon the therapist's arrival. The patient was willing to complete therapy this morning. O: The patient completed upper extremity and lower extremity dressing with mod independence. The patient completed toileting task with mod independence followed by grooming at the sink. The patient then walked down to therapy with distant supervision where she completed the upper body ergometer x4 minutes forward and 4 minutes backward. The patient requested to complete some aphasia exercises; even though the patient did not have a stroke, she feels she has trouble coming up with words. We did complete a synonym worksheet and an analogy worksheet. The patient did have some trouble coming up with multiple synonyms for a word; approximately 10-15% of the time she only got one word. It did take the patient approximately 40 minutes to complete the worksheet. A: The patient is doing fairly well. The therapist would say she is ready to go home; it sounds like discharge is set for tomorrow. P: Continue seeing patient BID during the week and one time per day over the weekend until discharge. EDITH
--- NOTE | 2016-09-05 12:52 | OT PM DAY ---
Diagnosis : Weakness PM - Occupational Therapy S: The patient was brought down by PT. O: The patient completed a standing activity x20 minutes to complete a functional game. The therapist did want to simulate the patient being at work at [employer] and completing standing activities at work. The patient did do very well; she tolerated the standing. However, this afternoon we played [id number] and the patient seemed a little off cognitively. She was not understanding the game. She would forget that she was saving 3s and she would put the 3s in the cup. This kind of was a new game to the patient but she just kept making small mistakes that made the therapist question her cognitive status. After taking with PT, the therapist also saw some difficulties with the patient differentiating right from left and having more difficulties with the left side. The patient did walk all the way back upstairs. Nursing was notified of possible cognitive deficits and they will keep an eye on the patient tonight. A: The patient did very well physically. P: Continue seeing patient BID during the week and one time per day over the weekend until discharge. EDITH
--- NOTE | 2016-09-05 14:10 | PT.PROG ---
Progress Note Progress Note: S. Patient states she is feeling good this afternoon, she reports that she feels like she is ready to go home. O. Patient ambulated 70 feet to the stairs then ascended and descended 12 stairs then ambulated 150 feet around the nurses station. Patient performed sit to stands x 10 then was left in her chair with alarm and call light. A. Patient tolerated stair training very well, she was slightly short of breath however she was able to recover after a short seated rest break. Patient has met all goals for this time. Patient would benefit from outpatient therapy at this time. P. Continue POC until discharged.
[2016-09-05] MEDS: HYDRALAZINE 10 MG TABLET PO SCH ×2 (16:19→20:28)
[2016-09-05] MEDS: EZETIMIBE 10 MG TABLET PO SCH (20:28)
[2016-09-06] MEDS: LEVOTHYROXINE 50 MCG TABLET PO SCH (05:32)
[2016-09-06] MEDS: PANTOPRAZOLE 40 MG TABLET PO SCH (06:49)
[2016-09-06] MEDS: HYDROCHLOROTHIAZIDE 25 MG TABLET PO SCH (06:49)
[2016-09-06 08:11] VITALS: RESP 20
[2016-09-06] MEDS: LISINOPRIL 20 MG TABLET PO SCH (10:05)
[2016-09-06] MEDS: Multivitamin Tab 1 TAB PO SCH (10:05)
[2016-09-06] MEDS: POTASSIUM CHLORIDE 20 MEQ TAB PO SCH (10:06)
[2016-09-06] MEDS: ASPIRIN EC 81 MG TABLET PO SCH (10:06)
[2016-09-06] MEDS: CITALOPRAM 20 MG TABLET PO SCH (10:06)
[2016-09-06] MEDS: HYDRALAZINE 10 MG TABLET PO SCH (10:06)
--- NOTE | 2016-09-06 11:31 | PT.PROG ---
Progress Note Progress Note: S. Patient stated that she is feeling better today she reported she feels that she is ready to go home. O. Patient ambulated 175 feet to the therapy gym where she performed cardio exercises in the form of; arm bike x 6 minutes, then nu-step x 10 minutes, then performed exercises in the form of; seated long arc quads, marches, heel toe raises, clamshells, resisted knee flexion all with 3# x 20, supine, straight leg raises, hip abduction/adduction, heel slides, short arc quads all with 3# x 20. Upper extremity Bench press with 3# x 20. Patient ambulated 175 feet back to her room where she was left in her chair with alarm and call light. A. Patient tolerated exercises well this morning, she struggles with weakness on her left side however is able to perform all tasks and if she looses her balance is able to correct her self with SBG assist. Patient would benefit from Outpatient therapy for PT and OT. P. Patient has met all goals at this time. Continue POC until Discharge.
--- NOTE | 2016-09-06 11:53 | DCSUMMARY ---
Hospitalization Summary Hospital Course: Final Discharge Diagnosis: Current Visit Problems Problem Status Priority Diagnosed Code History of atrial fibrillation Acute Z86.79 Hypercholesterolemia Acute E78.00 Hypertension Acute I10 Hypothyroidism Acute E03.9 TIA (transient ischemic attack) Acute G45.9 Unsteadiness Acute R26.81 Diagnostic Data, Laboratory Data, and Procedures of Signifigance: Laboratory Results 09/01/16 09/04/16 Range/Units 15:26 05:38 WBC 6.06 6.50 (4.8-10.8) 10^3/uL RBC 4.64 4.69 (4.20-5.40) 10^6/uL Hgb 13.8 13.6 (12.0-16.0) g/dL Hct 42.7 43.8 (37.0-47.0) % MCV 92.0 93.4 (81-99) FL MCH 29.7 29.0 (27-31) PG MCHC 32.3 L 31.1 L (33-37) g/dL RDW Std Deviation 46.0 47.2 (39-50) fL RDW Coeff of Olimpia 14.0 14.2 (11.5-14.5) % Plt Count 179 200 (140-350) 10*3/uL MPV 9.9 10.1 (7.4-12.2) FL Immature Gran % (Auto) 0.2 0.3 (0-5) % Neut % (Auto) 55.5 54.4 (50-80) % Lymph % (Auto) 29.7 29.1 (10-50) % [place] % (Auto) 10.4 10.8 (5-15) % Eos % (Auto) 3.5 4.9 (0-8) % Baso % (Auto) 0.7 0.5 (0-1) % Immature Gran # (Auto) 0.01 0.02 10*3/UL Neut # (Auto) 3.37 3.54 10*3/UL Lymph # (Auto) 1.80 1.89 10*3/uL [place] # (Auto) 0.63 0.70 (0.3-0.8) 10*3/UL Eos # (Auto) 0.21 0.32 10*3/UL Baso # (Auto) 0.04 0.03 10*3/UL WBC Morphology Comment Normal morphology Normal morphology (NORM) Plt Morphology Comment Normal morphology Normal morphology (NORM) RBC Morph Comment Normal morphology Normal morphology (NORM) Sodium 141 139 (135-145) meq/L Potassium 4.1 4.4 (3.8-5.2) meq/L Chloride 105 104 (98-112) meq/L Carbon Dioxide 25 26 (23-33) meq/L Anion Gap 11 9 (5-20) BUN 23 H 31 H (7-22) mg/dL Creatinine 0.6 0.7 (0.50-1.20) mg/dL Estimated GFR (>60 ml/min/1.73m(2)) BUN/Creatinine Ratio 38.33 H 44.28 H (6-20) Glucose 79 115 H (78-110) mg/dL Calculated Osmolality 294.0 H 295.0 H (267-292) mOsm/kg Calcium 10.4 9.8 (8.7-10.7) mg/dL Magnesium 1.7 (1.6-2.4) mg/dL Total Bilirubin 0.6 0.4 (0.3-1.2) mg/dL AST 27 20 (8-39) IU/L ALT 33 32 (9-52) IU/L Alkaline Phosphatase 74 69 (38-126) IU/L Troponin I < 0.012 (< 0.040) ng/mL Total Protein 6.6 6.4 (6.1-8.0) g/dL Albumin 4.0 3.8 (3.5-4.8) g/dL Globulin 2.6 2.6 (2.50-4.10) g/dL Albumin/Globulin Ratio 1.50 1.40 (1.3-2.0) mg/g TSH 2.85 (0.2700-4.2000) uIU/mL History and Physical pertinent to Admission: This is a 86 years old female with medical history significant for history of hypertension, hypothyroidism, hyperlipidemia and GERD who was referred to the hospital from Dr. Cai office as she's been having trouble finding words and unsteadiness that started last Thursday. Past Medical History Medical History: 1. History of hypertension. 2. History of atrial fibrillation status post ablation 2008. 3. Hyperlipidemia. 4. Hypothyroidism. 5. GERD. 6. Asthma Surgical History: 1. Hysterectomy. 2. Cholecystectomy Family History: Reviewed an Not Pertinent Tobacco Use: Never Smoker Substance Use Type: None Alcohol Use: Rarely Course of Hospitalization: This very nice 86-year-old female with past medical history of hypertension which is now uncontrolled, hypothyroidism, hyperlipidemia, GERD was sent to the hospital from primary care physician's office because she had difficulty finding words and was unsteady. Patient had an MRI of her brain which showed no acute stroke carotid ultrasound no acute findings. Patient did well throughout her hospital stay with the going back to her baseline with word finding and steadiness she benefited a great deal from PT and OT. Which she will continue as an outpatient. Her blood pressure was uncontrolled and I had to totally change medication to lisinopril 40, Norvasc 10 mg, hydrochlorothiazide 25, and hydralazine 10 mg by mouth 3 times a day. Prescriptions were called she will have a follow-up with her primary care physician next week. She does have a history of A. fib which she had an ablation remained sinus throughout her hospital stay she will be discharged also on 81 mg of aspirin she will be discussed discussing A. fib and possible anticoagulation with her primary care physician since she had an ablation and was sinus rhythm throughout her hospital stay. Patient understands and agrees to above plan and agrees with it further decision making a possible anticoagulation after she talks to Dr. Cai On the date of discharge, the patient was examined: Gen.: No acute distress, alert, nontoxic Heart: Regular rate and rhythm, no murmurs, clicks, gallops, or rubs Lungs: Clear to auscultation bilaterally, breathing is nonlabored Abdomen/GI: Normal tones on auscultation, soft, nontender, nondistended Musculoskeletal/extremities: No clubbing, cyanosis, or edema Vitals reviewed and are listed below Vital Signs (24 hrs) Temp Pulse Pulse Resp BP BP Pulse Ox 09/06/16 08:10 97.6 F 82 20 151/74 90 09/06/16 07:00 86 22 09/06/16 04:52 97.7 F 78 22 138/54 92 09/06/16 03:00 73 09/06/16 00:25 98.4 F 71 18 161/70 91 09/05/16 23:00 70 09/05/16 21:00 98.4 F 67 20 142/65 91 09/05/16 19:00 84 68 20 09/05/16 16:26 97.2 F 72 18 145/57 90 09/05/16 15:00 85 09/05/16 11:59 97 F 79 18 176/82 90 Assessment and Plan: 1. As per discharge assessments above 2. Disposition: Home 3. Condition on discharge, stable and improved. 4. Diet: regular diet 5. Activities: resume normal activities 6. Follow-Up: 1. PCP 2. 7. Medications at the Time of Discharge: Home Medications Medication Instructions Recorded Confirmed Type Albuterol HFA Inhaler [Proair HFA 2 puff INH Q4H PRN #3 inhaler 03/22/14 Clinic Inhaler] Budesonide/Formoterol Fumarate 2 puff INH BID #1 inhaler 03/22/14 09/01/16 Clinic [SYMBICORT] Multivitamin [Daily Vitamin] 1 each PO DAILY tab 03/22/14 09/01/16 History Dexlansoprazole [Dexilant] 60 mg PO DAILY #90 cap 09/04/15 09/01/16 Clinic Citalopram Hydrobromide 1 tab PO DAILY #90 tab 02/20/16 09/01/16 Clinic [Citalopram HBr] Potassium Chloride [Klor-Con M20] 20 meq PO BID #60 tab 02/22/16 09/01/16 Clinic Ezetimibe [Zetia] 1 tab ORAL QD #90 tab 06/16/16 09/01/16 Clinic Levothyroxine Sodium [Synthroid] 1 tab ORAL QD #90 tab 06/16/16 09/01/16 Clinic Amlodipine Besylate [Norvasc] 10 mg PO DAILY #30 tab 09/06/16 Rx Aspirin EC 81 mg PO DAILY tab 09/06/16 Rx Hydrochlorothiazide [HydroDiuril 25 mg PO EVERY AM #30 tab 09/06/16 Rx Tab] Lisinopril [Prinivil Tab] 40 mg PO DAILY #30 tab 09/06/16 Rx hydrALAZINE Tab [Apresoline Tab] 10 mg PO TID #30 tab 09/06/16 Rx 8. Time, care, counseling and coordination of care for this discharge is greater than 30 minutes. Exam - Vitals Vital Signs: Vital Signs Temperature 97.6 F Temperature Source Temporal Artery Scan Pulse Rate [Pulse Oximeter] 82 Pulse Rate [Apical] 84 Pulse Rate [Telemetry] 78 Pulse Rate 86 Respiratory Rate 20 Blood Pressure [Left Radial 161/70 Artery] Blood Pressure [Right Radial 136/64 Artery] Blood Pressure [Right Arm] 191/86 Blood Pressure [Left Arm] 151/74 Pulse Ox 90 Oxygen Delivery Method Room Air Height 5 ft 4 in Weight 92.533 kg Patient Problems - Patient Problem List (1) Hypertension Current Visit: Yes Status: Acute (2) Hypercholesterolemia Current Visit: Yes Status: Acute (3) Hypothyroidism Current Visit: Yes Status: Acute (4) TIA (transient ischemic attack) Current Visit: Yes Status: Acute (5) History of atrial fibrillation Current Visit: Yes Status: Acute
[2016-09-06 12:02] VITALS: TEMP 97.8
[2016-09-06] MEDS: Sodium Chloride 0.9% 1,000 ML IV SCH (12:55)
== END 2016-09-06 13:07 | disposition home or self-care (01) | DRG 92 ==
LOC: MED/SURG 14:37 → OBSVTOIN 09-03 14:35
PROVIDERS: ADMIT Internal Medicine; ATTEND Internal Medicine
DX: R26.81 Unsteadiness on feet (principal); G45.9 Transient cerebral ischemic attack, unspecified; I10 Essential (primary) hypertension; E78.00 Pure hypercholesterolemia, unspecified; E03.9 Hypothyroidism, unspecified; I48.91 Unspecified atrial fibrillation
CPT/HCPCS: 36415; 70450; 70544; 70551; 80053; 83735; 84443; 84484; 85025; 93005; 93010; 93880; 97110; 97112; 97162; 97166; 97530; 97535; J3475; J7030

== ENCOUNTER → 2016-09-09 | Outpatient (CLI) | payer OTHER | LOC: MMPC 11:11 | PROVIDERS: ATTEND Nurse Practitioner | DX: G45.9 Transient cerebral ischemic attack, unspecified (principal); I10 Essential (primary) hypertension ==

== ENCOUNTER → 2016-09-19 | Outpatient (CLI) | payer OTHER | LOC: MMPC 09:00 | PROVIDERS: ATTEND Family Medicine | DX: I10 Essential (primary) hypertension (principal); G45.9 Transient cerebral ischemic attack, unspecified; E03.9 Hypothyroidism, unspecified; K22.70 Barrett's esophagus without dysplasia ==

== ENCOUNTER → 2016-10-01 | Outpatient (CLI) | payer OTHER | LOC: MMPC 10:00 | PROVIDERS: ATTEND Podiatrist Foot & Ankle Surgery | DX: M79.672 Pain in left foot (principal); L60.3 Nail dystrophy ==

== ENCOUNTER → 2016-10-04 | Outpatient (CLI) | payer OTHER ==
[2016-10-04 10:06] LABS: BASOPHILS # (AUTO) 0.03 10*3/UL; BASOPHILS % (AUTO) 0.5 % (0-1); EOSINOPHILS # (AUTO) 0.35 10*3/UL; EOSINOPHILS % (AUTO) 5.8 % (0-8); HEMATOCRIT 42.9 % (37.0-47.0); HEMOGLOBIN 13.7 g/dL (12.0-16.0); MEAN CORPUSCULAR HEMOGLOBIN 29.6 PG (27-31); MEAN CORPUSCULAR HGB CONC 31.9 g/dL (33-37); MEAN CORPUSCULAR VOLUME 92.7 FL (81-99); MEAN PLATELET VOLUME 9.7 FL (7.4-12.2); MONOCYTES # (AUTO) 0.64 10*3/UL (0.3-0.8); MONOCYTES % (AUTO) 10.7 % (5-15); NEUTROPHILS # (AUTO) 3.07 10*3/UL; NEUTROPHILS % (AUTO) 51.3 % (50-80); RED BLOOD COUNT 4.63 10^6/uL (4.20-5.40)
[2016-10-04 10:34] LABS: BUN/CREATININE RATIO 31.66 (6-20); CALCIUM 9.8 mg/dL (8.7-10.7); SERUM ALBUMIN 3.8 g/dL (3.5-4.8)
[2016-10-04 10:52] LABS: PLATELET MORPHOLOGY COMMENT NORMAL MORPHOLOGY (NORM); RBC MORPHOLOGY COMMENT NORMAL MORPHOLOGY (NORM); WBC MORPHOLOGY COMMENT NORMAL MORPHOLOGY (NORM)
[2016-10-04 10:57] LABS: CHOL/HDL RATIO 4.06 RATIO (0-4.0)
== END ==
LOC: LAB 09:52
PROVIDERS: ATTEND Internal Medicine
DX: I10 Essential (primary) hypertension (principal); E78.5 Hyperlipidemia, unspecified; E03.9 Hypothyroidism, unspecified
CPT/HCPCS: 80053; 80061; 82550; 84443; 85025

== ENCOUNTER → 2016-10-06 | Outpatient (CLI) | payer OTHER | LOC: MMPC 11:11 | PROVIDERS: ATTEND Internal Medicine | DX: G45.9 Transient cerebral ischemic attack, unspecified (principal); I10 Essential (primary) hypertension; I48.91 Unspecified atrial fibrillation ==

== ENCOUNTER → 2016-10-21 | Outpatient (CLI) | payer OTHER ==
--- NOTE | 2016-10-21 15:10 | DI ---
PA /LATERAL CHEST X-RAY, 10/21/2016 1:55 PM : Clinical History: Cough. Previous Exam: 10/06/2014. There is no acute soft tissue or bony abnormality. Heart size is normal. Lungs are clear. Mediastinal structures are normal. There are no pulmonary nodules. Reading: Normal chest x-ray. There has been no interval change.
== END ==
LOC: MOB RAD 13:56
PROVIDERS: ATTEND Physician Assistant
DX: R05 Cough (principal)
CPT/HCPCS: 71020

== ENCOUNTER → 2016-10-30 | Outpatient (CLI) | payer OTHER | LOC: MMPC 09:00 | PROVIDERS: ATTEND Physician Assistant Medical | DX: I95.2 Hypotension due to drugs (principal); R05 Cough; R11.0 Nausea | CPT/HCPCS: 94640; G0463 ==

== ENCOUNTER → 2016-11-06 | Outpatient (CLI) | payer OTHER ==
[2016-11-06 17:22] LABS: BUN/CREATININE RATIO 27.27 (6-20); CALCIUM 9.8 mg/dL (8.7-10.7)
== END ==
LOC: MOB LAB 15:44
PROVIDERS: ATTEND Nurse Practitioner
DX: I10 Essential (primary) hypertension (principal)
CPT/HCPCS: 36415; 80048

== ENCOUNTER → 2016-11-18 | Outpatient (CLI) | payer OTHER | LOC: MMPC 11:11 | PROVIDERS: ATTEND Nurse Practitioner | DX: I10 Essential (primary) hypertension (principal) ==

== ENCOUNTER → 2016-11-25 | Outpatient (CLI) | payer OTHER | LOC: MMPC 11:11 | PROVIDERS: ATTEND Nurse Practitioner | DX: I10 Essential (primary) hypertension (principal) ==

== ENCOUNTER → 2016-12-06 | Outpatient (CLI) | payer OTHER | LOC: MMPC 11:11 | PROVIDERS: ATTEND Physician Assistant | DX: R05 Cough (principal); R06.2 Wheezing | CPT/HCPCS: 99213 ==

== ENCOUNTER → 2016-12-09 | Outpatient (CLI) | payer OTHER | LOC: MMPC 11:11 | PROVIDERS: ATTEND Nurse Practitioner | DX: I10 Essential (primary) hypertension (principal); R05 Cough | CPT/HCPCS: 99213 ==

== ENCOUNTER → 2016-12-16 | Outpatient (CLI) | payer OTHER | LOC: MMPC 11:11 | PROVIDERS: ATTEND Nurse Practitioner | DX: I10 Essential (primary) hypertension (principal); R05 Cough; Z87.09 Personal history of other diseases of the respiratory system ==

== ENCOUNTER 2016-12-19 22:44 | Emergency (ER) | payer OTHER ==
[2016-12-19 22:53] VITALS: RESP 18; TEMP 98
--- NOTE | 2016-12-19 23:41 | PDOC ---
General Adult HPI - General Chief Complaint: Cough / URI Stated Complaint: COUGH Date Seen by Provider: 12/19/16 Time Seen by Provider: 22:50 Source: POSITIVE: Patient Exam Limitations: POSITIVE: No limitations Nurse's Notes Reviewed & Considered: Yes - History of Present Illness Initial Comment: The patient is an 86-year-old female who presents to the emergency department with coughing spells. She states that she has been having a cough for at least the past 6 weeks. This evening she had a coughing spell and decided to come to the emergency room. She has been using her albuterol inhaler 5 or 6 times a day the last couple of days secondary to these coughing spells. She feels like there is drainage in the back of her throat and she feels like there is irritation in her upper airway. She denies any associated shortness of breath. She has not had any fever or productive cough. She states she does have some drainage from her nose as well. She does have a history of mild asthma. She admits that she has not been taking her Symbicort regularly and has not been using Flonase. She has been seen multiple times at the physician's office over the past several months related to this issue. She was treated with a course of steroids at one time which seemed to help short-term. In addition her lisinopril was discontinued just recently as it was thought this might be contributing to her cough. She denies any current chest pain or any other associated symptoms. Have you received a tetanus shot in the past 10 years?: Yes - Patient Home Medications Home Medications: Home Medications Multivitamin [Daily Vitamin] 1 each PO DAILY tab 03/22/14 Dexlansoprazole [Dexilant] 60 mg PO DAILY #90 cap 09/04/15 Potassium Chloride [Klor-Con M20] 20 meq PO BID #60 tab 02/22/16 Ezetimibe [Zetia] 1 tab ORAL QD #90 tab 09/29/16 Citalopram Hydrobromide [Citalopram Hbr] 1 tab PO DAILY #90 tab 10/08/16 Edoxaban Tosylate [Savaysa] 1 tab PO QD #84 tab 10/08/16 Hydrochlorothiazide 1 tab PO DAILY #90 tab 10/08/16 Levothyroxine Sodium [Synthroid] 1 tab ORAL QD #90 tab 10/08/16 predniSONE Tab [Deltasone Tab] 40 mg PO DAILY #10 tab 10/21/16 Albuterol Sulfate [Proair Hfa] 2 puff INH Q4H PRN #1 inhaler 10/22/16 Fluticasone/Salmeterol [Advair 250-50 Diskus] 1 puff INH BID #1 inhaler Amlodipine Besylate 1 tab PO DAILY #90 tab 12/18/16 - Patient Allergies Allergies/Adverse Reactions: Allergies Allergy/AdvReac Type Severity Reaction Status Date / Time aloe vera Allergy Mild RASH Verified 12/19/16 22:48 vitamin A [From Retinol] Allergy RASH Verified 12/19/16 22:48 atenolol AdvReac Intermediate NOT Verified 12/19/16 22:48 APPLICABLE brimonidine tartrate AdvReac Intermediate DIZZINESS Verified 12/19/16 22:48 [From Simbrinza] brinzolamide [From Simbrinza] AdvReac Intermediate DIZZINESS Verified 12/19/16 22:48 codeine AdvReac Intermediate VOMITING Verified 12/19/16 22:48 sotalol AdvReac Intermediate NOT Verified 12/19/16 22:48 APPLICABLE Kaddepc-Nth-Qrb Reductase AdvReac Intermediate NOT Verified 12/19/16 22:48 Inhibitor APPLICABLE Past Medical History - heen HEENT History: Cataracts, Hard of Hearing, Dentures/Partials Cardiovascular History: Hypertension, Arrhythmia, Hyperlipidemia, Other (please comment) Additional Cardiovasular History: A FIB WITH HX OF CARDIAC ABLATION Respiratory History: Asthma Additional Respiratory History: HAS HAD A URI FOR 3 WEEKS, STATES JUST WENT TO THE ER LAST NIGHT (08/20/14) AND WAS STARTED ON ABX. MANISHA WISDOM COME AND DO EXAM/EVAL. HE STATED THAT IF PATIENT DOES NOT GET ANY SICKER AND CONTINUES TO IMPROVE, WE SHOULD BE GOOD TO GO FOR THE SX ON 08/31/14 Gastrointestinal History: GERD, Diverticulitis, Gallbladder Disease, Other ( please comment) Additional Gastrointestinal History: Hx of cholecystectomy. Genitourinary History: Incontinence Endocrine History: Hypothyroidism Musculoskeletal History: Joint Pain Prosthesis or Implant: Yes (TEETH/ BREASTS) Additional Musculoskeletal History: RIGHT SHOULDER SURGERY Neurological History: Other (please comment) Additional Neurological History: SHORT MEMORY LOSS Blood Disorders: Denies History Psychiatric History: Denies History History of Sexually Transmitted Diseases: No Female Reproductive History: Denies History Obstetrical History: Denies History Cancer History: Denies History In Past Year Been Physically Harmed or Verbally Threatened: No History of MDRO: No History of Other Communicable Diseases: No History of Exposure to Communicable Disease: No Tobacco Use: Never Smoker Alcohol Use: None Substance Use Type: None Previous Surgical History: Yes Type / Date of Surgery: ABLATION OF SA NODE IN 2011/ APPY/ RIGHT SHOULDER RCR/ CATARACTS BILAT/ COLONSCOPY/ TEETH/ EXPLORATORY VAGINAL SX Anesthesia Reactions: No Malignant Hyperthermia: No Significant Family History: No pertinent family hx Past Medical History Reviewed: Reviewed - No Changes ROS - Limitations ROS Limitations: No Limitations Constitution: DENIES: Chills, Fever Cardiovascular: DENIES: Chest Pain, Heart Palpitations, Edema Respiratory: REPORTS: Cough Non Productive. DENIES: Hurts To Breathe, Shortness Of Breath, Wheezing Neurological: REPORTS: Denies Neuro Symptoms Gastrointestinal: REPORTS: Denies GI Symptoms Musculoskeletal: DENIES: Lower Extremity Swelling General Adult Exam - General Appearance General Appearance: POSITIVE: Alert, Cooperative, No Acute Distress - HEENT HEENT: POSITIVE: Head Inspection Nml, Eyes Inspection Nml, Ears Inspection Nml, Nose Inspection Nml, Pharynx Inspect. Nml - Neck Neck: POSITIVE: Normal Inspection, Other (No JVD). NEGATIVE: Lymphadenopathy - Respiratory Respiratory: POSITIVE: No Respiratory Distress, Breath Sounds Normal - Cardiovascular Cardiovascular: POSITIVE: Regular Rate & Rhythm, No Murmur - Skin Skin: POSITIVE: Normal Color, No Rash - Extremities Extremity: Normal ROM: (All Extremities), Normal Inspection: (All Extremities) General Adult Progress - Results Reviewed by me Xrays/CTs/US Reviewed by me: Yes Radiology Findings: Chest x-ray PA and lateral reveals normal heart size, normal lung rivera, no acute change when compared to a chest x-ray from September of this year. - Patient's Progress MDM / ED Course: After reviewing the patient's medical record and her current x-ray it appears that this cough may be multi-factorial. She does have a history of reactive airway disease/asthma. In addition she just had an KARI inhibitor discontinued within the last couple of weeks. She does also appear to have some postnasal drainage. She does not exhibit any clinical concern regarding infection. I did review her current medications and recommendations. She was advised to use her Symbicort regularly twice a day and the albuterol inhaler as needed. In addition she was advised to use Flonase which she has at home however has not been using. She will return to the emergency room if increased shortness of breath, any worsening or change in symptoms. She will follow-up with her primary care provider in 5-7 days. - Consult Counseled: POSITIVE: Patient, Family, RE: Radiology Results, RE: DX, RE: Need for F/U Patient Care Time - Estimated PCT Patient Care Time (In Minutes): 20 Vital Signs - Recent Vital Signs Vital Signs: Vital Signs (Last 8 hours) Temp Pulse Resp BP Pulse Ox 12/19/16 22:46 98.0 F 74 18 105/65 95 - VS Reviewed Vital Signs Reviewed: Yes Discharge Clinical Impression: Cough, Reactive airway disease Discharge Disposition: Discharged to Home Condition: Stable Patient Instructions Given at Discharge: Asthma (ED), Chronic Cough (ED) Additional Instructions: The chest x-ray done here in the emergency department did not show any evidence of fluid or infection. This was unchanged from the chest x-ray had in September of this year. The cough that you are experiencing is most likely being triggered by the postnasal drainage. In addition the KARI inhibitor that you are taking ( lisinopril) may have been contributing to her cough as well. Recommend that she use the Symbicort inhaler regularly twice a day. Also recommend that you use your Flonase twice a day. Use the albuterol inhaler as needed. Return to the emergency room if increased shortness of breath, fever or productive cough, any worsening or change in symptoms. Recommend follow-up with your primary care provider in 5-7 days. Follow Up With: GABRIEL JORGENSEN [Primary Care Provider] -
--- NOTE | 2016-12-22 00:59 | DI ---
XR CXR 2VW PA/LAT,12/19/2016 10:56 PM: Clinical History: Cough Previous Exam: October 21, 2016 Findings: PA and lateral views of the chest are obtained, and demonstrate clear lungs. The cardiomediastinum an d bony thorax are unremarkable and stable from the prior exam. Impression: No acute disease.
== END 2016-12-19 23:41 | disposition home or self-care (01) ==
LOC: ER 22:44
DX: J45.909 Unspecified asthma, uncomplicated (principal); R05 Cough
CPT/HCPCS: 71020; 99282

== ENCOUNTER → 2017-01-05 | Outpatient (CLI) | payer OTHER | LOC: MMPC 11:11 | PROVIDERS: ATTEND Internal Medicine | DX: I10 Essential (primary) hypertension (principal); G45.9 Transient cerebral ischemic attack, unspecified; Z86.79 Personal history of other diseases of the circulatory system; Z98.890 Other specified postprocedural states | CPT/HCPCS: 99214; G0463 ==